=== PATIENT | male | born 1960 | race Caucasian/White ===

== ENCOUNTER 2017-12-29 00:04 | Emergency (ER) | payer OTHER ==
[~2017-12-29] VITALS: Ht 172.7 cm; Wt 70.3 kg
[2017-12-29] MEDS ORDERED: PROTONIX40 M1 (00:54)
[2017-12-29] MEDS ORDERED: TRAMADOL HCL50 MG PO (03:57)
[2017-12-29] MEDS ORDERED: NAPROXEN SODIU550 M1 PO (03:57)
== END 2017-12-29 06:13 | disposition home or self-care (01) ==
LOC: ER 00:04
DX: S22.32XS Fracture of one rib, left side, sequela (principal); W18.09XS Striking against other object with subsequent fall, sequela

== ENCOUNTER 2018-04-08 08:03 | Outpatient (CLI) | payer OTHER ==
[~2018-04-08 08:03] MED LIST: NAPROXEN SODIU550 M1 PO; PROTONIX40 M1; TRAMADOL HCL50 MG PO
== END 2018-04-08 09:00 | disposition home or self-care (01) ==
LOC: NUCLEAR 08:03
DX: R10.2 Pelvic and perineal pain (principal); R94.31 Abnormal electrocardiogram [ECG] [EKG]; I65.23 Occlusion and stenosis of bilateral carotid arteries

== ENCOUNTER 2025-05-09 12:08 | Outpatient (CLI) | payer OTHER | END 2025-05-09 12:19 | disposition home or self-care (01) | LOC: RAD 12:08 | PROVIDERS: ATTEND Internal Medicine Gastroenterology | DX: R05.3 Chronic cough (principal) ==